=== PATIENT | male | born 1970 | race Caucasian/White ===

== ENCOUNTER → 2016-11-28 | Outpatient (CLI) | payer OTHER ==
[~2016-11-28] MED LIST: GADAVIST IV PRN; OMEG10007 PO; PRLSR20 PO; VITAMIN D PO
--- NOTE | 2016-11-28 12:20 | DIAGNOSTIC IMAGING REPORT ---
MR ARTHROGRAM OF THE RIGHT SHOULDER CLINICAL HISTORY: Right shoulder pain. Shoulder injury. COMPARISON STUDY: MRI of the right shoulder from 611 dated 02/23/2016. TECHNIQUE: Following the intra-articular administration of gadolinium contrast, MR arthrogram of the right shoulder was performed utilizing various T1 and T2 weighted sequences in the axial, sagittal, coronal planes. FINDINGS: Rotator cuff: There is evidence of previous rotator cuff compare. There is full-thickness rupture of the supraspinatus, infraspinatus, and subscapularis tendons. The teres minor tendon appears intact. There is retraction the supraspinous tendon by approximately 4.5 cm. There is retraction of the infraspinatus by approximately 3.5 cm. Articular contrast extends into the subacromial and subdeltoid bursae. Productive degenerative change is seen in the acromioclavicular joint. Biceps tendon: The biceps tendon is not identified. This may be related to previous surgical repair. Labrum: There is circumferential degenerative tearing/fraying of the labrum. Shoulder joint: The joint space is well distended with intra-articular contrast. There is superior subluxation of the humeral head. The articular cartilage over the glenoid appears maintained. Arthritic changes present in the humeral head. There is no MRI evidence of fracture. Musculature and soft tissues: There is no significant intramuscular edema or atrophy. IMPRESSION: 1. There is evidence of previous rotator cuff repair. 2. There is full-thickness rupture of the supraspinatus, infraspinatus, and subscapular tendons with superior subluxation of the humeral head. There is significant associated musculotendinous retraction. No intramuscular edema or atrophy is identified. 3. The long head of the biceps tendon is not visualized, likely related to previous surgical repair. Rupture is not excluded. 4. There is circumferential degenerative tearing/fraying of the labrum. Electronically signed by: Oliverio Martinez M.D. 11/28/2016 12:19 PM Dictated Date/Time: 11/28/2016 12:09 PM
--- NOTE | 2016-11-28 12:29 | DIAGNOSTIC IMAGING REPORT ---
RIGHT SHOULDER INJECTION UNDER FLUOROSCOPIC GUIDANCE CLINICAL HISTORY: Right shoulder pain. Injection for MR arthrogram. PROCEDURE: The risks, benefits, and alternatives to the procedure were discussed with the patient. Written informed consent was obtained. The patient was placed supine on the fluoroscopy table, and a right shoulder injection was performed under fluoroscopic guidance. The area was prepped and draped in the usual sterile fashion. The skin and soft tissues anesthetized with local 1% lidocaine. The right shoulder joint was accessed utilizing a 22-gauge needle, and approximately 7 cc of a mixture of gadolinium contrast, Optiray 300, and saline was injected into the joint space under fluoroscopic guidance. There was normal distention of the capsule. The procedure was well tolerated and without immediate complication. The patient was then transferred to MRI for MR arthrography. FLUOROSCOPY TIME: 22 seconds IMPRESSION: Unremarkable injection of the right shoulder under fluoroscopic guidance. Electronically signed by: Oliverio Martinez M.D. 11/28/2016 12:27 PM Dictated Date/Time: 11/28/2016 12:27 PM
== END | disposition home or self-care (01) ==
LOC: C.MRIBC 10:18
PROVIDERS: ATTEND Orthopaedic Surgery
DX: S46.011A Strain of muscle(s) and tendon(s) of the rotator cuff of right shoulder, initial encounter (principal); X58.XXXA Exposure to other specified factors, initial encounter